=== PATIENT | female | born 2000 | race Caucasian/White ===

== ENCOUNTER 2018-04-21 12:42 | Emergency (ER) | payer OTHER, MEDICAID ==
[~2018-04-21] VITALS: Ht 180.3 cm; Wt 89.4 kg
[~2018-04-21 12:42] MED LIST: ADVAIR 100-501 EACH INH; BACTRIM DS TAB1 EACH PO; IBUPROFEN 600600 M1 PO; IBUPROFEN 800800 M1 PO; IBUPROFEN 800800 MG PO
[2018-04-21 14:19] LABS: INFLUENZA A ANTIGEN None Detected (None Detect); INFLUENZA B ANTIGEN None Detected (None Detect)
[2018-04-21 14:29] VITALS: BP 120/69
== END 2018-04-21 14:30 | disposition home or self-care (01) ==
LOC: M.ERS 12:42
PROVIDERS: Nurse Practitioner Family
DX: O98.512 Other viral diseases complicating pregnancy, second trimester (principal); B34.9 Viral infection, unspecified; R05 Cough; J45.909 Unspecified asthma, uncomplicated; F17.200 Nicotine dependence, unspecified, uncomplicated; Z88.5 Allergy status to narcotic agent; Z3A.00 Weeks of gestation of pregnancy not specified

== ENCOUNTER 2019-01-03 15:42 | Emergency (ER) | payer OTHER, MEDICAID ==
[~2019-01-03] VITALS: Ht 177.8 cm; Wt 90.7 kg
[2019-01-03] MEDS ORDERED: NABUMETONE 750750 M1 PO (16:02)
[2019-01-03] MEDS ORDERED: AMOXICILLIN 50500 MG PO (16:02)
[2019-01-03 16:12] VITALS: BP 123/81
== END 2019-01-03 16:13 | disposition home or self-care (01) ==
LOC: M.ERS 15:42
DX: H66.92 Otitis media, unspecified, left ear (principal); Z88.5 Allergy status to narcotic agent; Z98.890 Other specified postprocedural states